=== PATIENT | male | born 1990 | race African-American/Black ===

== ENCOUNTER 2017-01-21 23:22 | Emergency (ER) | payer MEDICAID ==
[~2017-01-21] VITALS: Ht 170.2 cm; Wt 63.5 kg
[2017-01-21 23:46] VITALS: BP 144/94
[2017-01-21] MEDS ORDERED: Vancomycin 1gm inj IVPB ONE (23:52)
[2017-01-22] MEDS ORDERED: Vancomycin 1 GM in NS 275 ML IVPB ONE ×2
[2017-01-22] MEDS ORDERED: Norco 5mg/325mg tab ORAL ONE
[2017-01-22] MEDS ORDERED: BACTRIM DS TAB1 EAC1 ORAL (00:24)
[2017-01-22] MEDS ORDERED: HYDROCODON-ACE1 EA15 ORAL (00:24)
--- NOTE | 2017-01-22 00:25 | Emergency Room Report ---
History of Present Illness General Chief Complaint: Skin Rash/Abscess Source: Patient Present Illness HPI Is a 26-year-old male with no past medical history. He present with spider bite to the left thigh. He was seen at [facility] approximately 2 half weeks ago. He had a large abscess to his left upper proximal thigh. There was I&D. He never followup and did not fill his antibiotics. There are abscess develop this did to it. He tried to pop it by poking a needle in it. Now increasing pain. has drainage. No fever or chills. Worse with movement and palpation. Pain is 10 out of 10. No nausea no vomiting Allergies: Coded Allergies: No Known Allergies (Unverified , 01/21/17) Patient History Past Medical History: see triage record, old chart reviewed Past Surgical History: none Pertinent Family History: none Social History: Denies: smoking Immunizations: other Reviewed Nursing Documentation: PMH: Agreed, PSxH: Agreed Nursing Documentation-PM Past Medical History: No Stated History Review of Systems Eye: Denies: eye pain, blurred vision ENT: Denies: ear pain, nose congestion, throat swelling Respiratory: Denies: cough, shortness of breath Cardiovascular: Denies: chest pain, palpitations Gastrointestinal: Denies: abdominal pain, diarrhea, nausea, vomiting Musculoskeletal: Denies: back pain, joint pain Skin: Denies: rash Neurological: Denies: headache, numbness Endocrine: Denies: increased thirst, increased urine Hematologic/Lymphatic: Denies: easy bruising All Other Systems: negative except mentioned in HPI Physical Exam Vital Signs Date Time Temp Pulse Resp B/P (MAP) Pulse Ox O2 Delivery O2 Flow Rate FiO2 01/21/17 23:31 97.7 85 16 144/94 100 Room Air vitals normal Sp02 EP Interpretation: reviewed, normal General Appearance: well appearing, no apparent distress, alert Head: normocephalic, atraumatic Eyes: bilateral eye PERRL, bilateral eye EOMI ENT: hearing grossly normal, normal pharynx Neck: full range of motion, supple, no meningismus Respiratory: chest non-tender, lungs clear, normal breath sounds Cardiovascular #1: regular rate, rhythm, no murmur Gastrointestinal: normal bowel sounds, non tender, no mass, no organomegaly, no bruit, non-distended Musculoskeletal: back normal, gait/station normal, normal range of motion, other - Left thigh: There is an old abscess. Distal to it and on the anterior aspect, there is an abraded area of 3 cm with necrotic center and drainage. On the lateral aspect of the thigh there are 2 indurated area of 2 cm with necrotic center. No drainage. On the mid anterior thigh there is an indurated area of 1 cm with necrotic center. No drainage. On the distal aspect of the lateral thigh there is an indurated area of 1 cm with whitish center. Fluids motion the hip. Full range of motion of the knee. Psychiatric: mood/affect normal Skin: warm/dry Procedures Incision and Drainage Incision and Drainage : Consent: Verbal Site: Left thigh Blade Size: 11 I & D Procedure: betadine prep, sterile drapes applied, sterile dressing applied, gauze wick placed Wound Location: lower extremity Anesthesia: 1% Lidocaine Volume Anesthetic (ccs): 15 Patient Tolerated: Well Complications: None Progress There were 5 sites of abscesses. I clean area with chlorhexidine and Betadine. Local anesthetic with 1% lidocaine. The biggest site has necrotic center already. I removed the tissue. There is good granulation tissue underneath. 2 proximal small abscess it had moderate amount of pus. Likely there is broken up. Packing placed. 2 smaller areas of abscess or I&D and pus expressed. No packing done. Area irrigated with normal saline first. Patient tolerated procedure without a problem. Medical Decision Making Diagnostic Impression: Primary Impression: Abscess of left thigh ER Course Patient present with an abscess to his left thigh. This is most likely MRSA with multiple sites. Antibiotics given here. We'll discharge home. No evidence of deep infection. No evidence of necrotizing fasciitis. No history of IV drug abuse. Last Vital Signs Date Time Temp Pulse Resp B/P (MAP) Pulse Ox O2 Delivery O2 Flow Rate FiO2 01/21/17 23:46 97.7 85 16 144/94 100 Room Air Status: improved Disposition: HOME, SELF-CARE Condition: Stable Scripts Hydrocodone/Acetaminophen 5-325* (HYDROCODONE/ACETAMINOPHEN 5-325*) 1 Each Tablet 1 TAB ORAL Q6H Y for For Pain, #20 TAB 0 Refills Prov: LEROY LOCKWOOD M.D. 01/22/17 Trimethoprim/Sulfamethoxazole 160/800* (BACTRIM DS TABLET*) 1 Each Tablet 1 TAB ORAL Q12H, #14 TAB 0 Refills Prov: LEROY LOCKWOOD M.D. 01/22/17 Referrals: [facility],REFERRING (PCP) Patient Instructions: Abscess Additional Instructions: Followup with your doctor or come back in 2 days for recheck. Clean area with hydrogen peroxide. Return sooner for fever or worsening symptoms. LEROY LOCKWOOD M.D. Jan 22, 2017 00:25
[2017-01-22] MEDS ORDERED: Morphine Sulfate 4mg/ml Inj IVP ONE (00:45)
[2017-01-22 02:37] VITALS: BP 145/79
[2017-01-22 02:38] VITALS: BP 145/79
== END 2017-01-22 02:39 | disposition home or self-care (01) ==
LOC: EMR 23:35
DX: L02.416 Cutaneous abscess of left lower limb (principal)
CPT/HCPCS: 10060; 96365; 96366; 96375; 99284; J2270; J2405; J3370; J7050